=== PATIENT | female | born 1945 | race Caucasian/White ===

== ENCOUNTER 2020-05-28 16:33 | Observation (INO) | payer MEDICARE, OTHER ==
[~2020-05-28] VITALS: Ht 165.1 cm; Wt 77.1 kg
[2020-05-28] MEDS ORDERED: ASPIRIN CHEWABLE 81 MG TABLET. PO ONE (17:15)
--- NOTE | 2020-05-28 17:15 | EKG ---
[address] [address] Test Date: 2020-05-28 Test Time: 17:01:42 Pat Name: RAFAL GONZALES Department: Room: Gender: F Artistic Director: MACKENZIE : 1945 Requested By: YEHUDA KWON Order Number: [id number] Reading MD: Measurements Intervals [place] Rate: 49 P: 37 LA: 198 QRS: 35 QRSD: 100 T: 76 QT: 436 QTc: 396 Interpretive Statements SINUS BRADYCARDIA T ABNORMALITY IN HIGH LATERAL LEADS ABNORMAL ECG RI6.02 No previous ECG available for comparison
--- NOTE | 2020-05-28 17:16 | PHYS DOC ---
General Adult EDM: Chief Complaint: WEAKNESS/GENERALIZED HPI: HPI: 74-year-old female coming in for evaluation of high blood pressure readings this afternoon. Patient states she has been feeling weak recently and had decreased p.o. intake secondary to losing some teeth. 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 Patient has had other occasions where she has had high blood pressure during her PT sessions, she only takes half of her losartan on those days. Says she has had other previously high blood pressure reading in April, her systolic was greater than 200. Usual blood pressure readings are in the systolic 150s to 160s. Today at 3:21 PM the reading was 238/126, at 3:30 PM 158/84, at 3:46 PM it was 98/42. (YEHUDA KWON MD) Review of Systems: Review of Systems: All other systems within normal limits except for as noted in the HPI (YEHUDA KWON MD) Physical Exam: PE: Constitutional: Well developed, well nourished, no acute distress, non-toxic appearance. [] HENT: Normocephalic, atraumatic, bilateral external ears normal, nose normal. [] Eyes: PERRLA, conjunctiva normal, no discharge. [] Neck: No rigidity, supple, no stridor. [] Cardiovascular: Bradycardia, regular rhythm, brisk cap refill [] Lungs & Thorax: Non labored symmetric respirations, no tachypnea or respiratory distress [] Abdomen: Soft, nondistended. Skin: Warm, dry, no erythema, no rash. [] Back: Unremarkable Extremities: No deformities, no lower extremity edema [] Neurologic: Alert and oriented X 3, flacid right-sided hemiparalysis. [] Psychologic: Affect normal, judgement normal, mood normal. [] (YEHUDA KWON MD) Current Patient Data: Vital Signs: Vital Signs Date Time Temp Pulse Resp B/P (MAP) Pulse Ox O2 Delivery O2 Flow Rate FiO2 05/28/20 16:51 97.8 50 16 121/51 (74) 96 Room Air (YEHUDA KWON MD) EKG: EK: Sinus bradycardia heart rate of 40 bpm, trace ST elevation but less than 1 mm in inferior leads, no reciprocal depressions. T wave upright in V1 and inverted in aVL. No ectopy, normal intervals. 174: Repeat ECG unchanged, heart rate 48 bpm. [] (YEHUDA KWON MD) Radiology/Procedures: Radiology/Procedures: Exam: Chest one view INDICATION: Hypertension TECHNIQUE: Frontal view of the chest Comparisons: None FINDINGS: The cardiomediastinal silhouette and pulmonary vessels are within normal limits. The lung and pleural spaces are clear. IMPRESSION: No acute cardiopulmonary process. (YEHUDA KWON MD) Heart Score: Risk Factors: Risk Factors: DM, Current or recent (<one month) smoker, HTN, HLP, family history of CAD, obesity. Risk Scores: Score 0 - 3: 2.5% MACE over next 6 weeks - Discharge Home Score 4 - 6: 20.3% MACE over next 6 weeks - Admit for Clinical Observation Score 7 - 10: 72.7% MACE over next 6 weeks - Early Invasive Strategies (YEHUDA KWON MD) Course & Med Decision Making: Course & Med Decision Making Consulted is Dr. Arzola due to irregularities on EKG and no prior for comparison. He does not think it is STEMI and is recommending a repeat EKG in 30 minutes. EKG unchanged. Care transition to Dr. Kirkland pending labs (YEHUDA KWON MD) Course & Med Decision Making Patient is a 74-year-old female that presented to the emergency department with labile blood pressures and fatigue who was checked out to me from day team. Vital signs notable for sinus bradycardia and labile blood pressures. Patient with hypomagnesemia, hypokalemia and ROSEMARY. EKG x2 showed sinus bradycardia. Troponin within normal limits. Discussed findings with family and recommended admission for continued evaluation and treatment as well as medication management. Family grateful, verbalized understanding and agreed with plan of admission. (LEONIDAS KIRKLAND MD) Dragon Disclaimer: Dragon Disclaimer: This electronic medical record was generated, in whole or in part, using a voice recognition dictation system. (YEHUDA KWON MD) Departure Departure: Impression: Primary Impression: Hypomagnesemia Additional Impressions: Hypokalemia Elevated serum creatinine Sinus bradycardia Disposition: ADMITTED INPT THIS HOSP Admitting Physician: Lora Birmingham (LEONIDAS KIRKLAND MD) Referrals: CLAIR SPIVEY MD (PCP) YEHUDA KWON MD May 28, 2020 17:16 LEONIDAS KIRKLAND MD May 28, 2020 18:51
--- NOTE | 2020-05-28 17:20 | RAD ---
Exam: Chest one view INDICATION: Hypertension TECHNIQUE: Frontal view of the chest Comparisons: None FINDINGS: The cardiomediastinal silhouette and pulmonary vessels are within normal limits. The lung and pleural spaces are clear. IMPRESSION: No acute cardiopulmonary process. Electronically signed by: Chris Amanda MD (05/28/2020 5:18 PM) JATINDER
[2020-05-28 17:50] LABS: BASO % 0 % (0-3); EOS # 0.2 x10^3/uL (0.0-0.7); EOS % 2 % (0-3); HEMATOCRIT 38.5 % (36.0-47.0); HEMOGLOBIN 12.3 g/dL (12.0-15.5); LYMPH # 1.4 x10^3/uL (1.0-4.8); LYMPH % 15 % (24-48); MEAN CORPUSCULAR HEMOGLOBIN 28 pg (25-35); MEAN CORPUSCULAR HGB CONC 32 g/dL (31-37); MEAN CORPUSCULAR VOLUME 87 fL (79-100); MONO # 0.7 x10^3/uL (0.0-1.1); MONO % 8 % (0-9); NEUT # 6.7 x10^3uL (1.8-7.7); NEUT % 74 % (31-73); PLATELET COUNT 153 x10^3/uL (140-400); RED BLOOD COUNT 4.44 x10^6/uL (3.50-5.40); WHITE BLOOD COUNT 9.1 x10^3/uL (4.0-11.0)
[2020-05-28 18:05] LABS: CALCIUM 10.5 mg/dL (8.5-10.1); CREATININE 1.9 mg/dL (0.6-1.0); GFR 25.9; POTASSIUM 3.1 mmol/L (3.5-5.1)
--- NOTE | 2020-05-28 18:15 | EKG ---
[address] [address] Test Date: 2020-05-28 Test Time: 17:44:22 Pat Name: RAFAL GONZALES Department: Room: Gender: F Residence Supervisor: MACKENZIE : 1945 Requested By: YEHUDA KWON Order Number: [id number] Reading MD: Measurements Intervals [place] Rate: 48 P: 47 OK: 216 QRS: 36 QRSD: 102 T: 62 QT: 438 QTc: 395 Interpretive Statements SINUS BRADYCARDIA OTHERWISE NORMAL ECG RI6.02 No previous ECG available for comparison
[2020-05-28 18:16] LABS: ALBUMIN 3.2 g/dL (3.4-5.0); ALBUMIN/GLOBULIN RATIO 0.9 (1.0-1.7); MAGNESIUM 1.1 mg/dL (1.8-2.4); TOTAL BILIRUBIN 0.2 mg/dL (0.2-1.0); TOTAL PROTEIN 6.7 g/dL (6.4-8.2)
[2020-05-28] MEDS ORDERED: MAGNESIUM SULFATE 2GM 50 ML IV ONE (18:45)
[2020-05-28] MEDS ORDERED: POTASSIUM CHLORIDE 20 MEQ TABLET.ER. PO ONE (18:45)
[2020-05-28 20:05] VITALS: BP 118/68
--- NOTE | 2020-05-28 20:42 | HP ---
ADMIT DATE: 05/28/2020 HISTORY OF PRESENT ILLNESS: The patient is a 74-year-old female patient, who was brought to the Emergency Room as apparently she was having physical therapy and there she was noted to have extremely high blood pressure with a reading of 238/126 and other reading showed that the blood pressure was very labile and came down to 98/42. The patient stated that she was weak, but denied any other complaint. She stated that she had occasions where she has had high blood pressure during her PT sessions. She only takes half of her losartan on those days, but her blood pressure readings are usually between 150-160 systolic. She denied any chest pain, shortness of breath, orthopnea, paroxysmal nocturnal dyspnea. She was brought to the Emergency Room where she was evaluated and initially her EKG showed that she was in sinus bradycardia with heart rate at 40 beats per minute with trace ST segment elevation less than 1 mm in the inferior leads. No reciprocal depression and T-wave upright in V1, inverted in aVL. Apparently, the EKG was sent to Dr. Arzola and he did not feel that this is consistent with ST segment elevation. His repeat EKG showed the heart rate has unchanged much and was at 48 per minute. Her chest x-ray showed the cardiomediastinal silhouette and pulmonary vessels are within normal limits. Lungs and pleural spaces are clear. However, her lab work showed that she has hypernatremia, hypokalemia, impaired kidney function, hypercalcemia and severe hypomagnesemia with the magnesium of 1.1. Her troponin was 0.050. The patient was given 40 mEq of potassium chloride, 2 grams of magnesium and an aspirin was admitted for further evaluation and treatment. 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 PAST SURGICAL HISTORY: Significant for tonsillectomy, appendectomy, total abdominal hysterectomy and bilateral salpingo-oophorectomy. ALLERGIES: She is allergic to PENICILLIN AND METFORMIN. MEDICATIONS: She is currently on amlodipine 10 mg once a day, aspirin 81 mg once a day, calcium 1250 mg once a day, Colace 100 mg once a day, hydralazine 50 mg 3 times a day, Januvia 100 mg once a day, losartan 50 mg once a day, melatonin 10 mg at bedtime, metoprolol tartrate 25 mg once a day, potassium chloride 10 mEq, pravastatin 40 mg at bedtime, Zoloft 100 mg once a day, vitamin D2 50,000 units once a week, and zinc 220 mg once a day. FAMILY HISTORY: Noncontributory. SOCIAL HISTORY: She is , has adopted daughter. She has never smoked, does not drink alcohol or use any drugs. She used to be a physical therapist. REVIEW OF SYSTEMS: As per history of present illness. PHYSICAL EXAMINATION: GENERAL: Apparently when she arrived to the Emergency Room, she looked well and was clearly in no apparent respiratory distress. No pallor, jaundice or cyanosis. No lymphadenopathy, no thyromegaly. No jugular venous distension. No limb edema. VITAL SIGNS: Her heart rate was 50, blood pressure was 125/51, temperature 97.8, respiratory rate was 16, and oxygen saturation was 96%. HEAD, EYES, EARS, NOSE AND THROAT: Normocephalic, atraumatic. NECK: Supple. HEART: Showed normal first and second heart sounds. No gallop, rub or murmur. CHEST: Clear to auscultation. No crepitation or rhonchi. ABDOMEN: Distended, soft, nontender. NEUROLOGIC: She is awake, alert, responding appropriately. All her cranial nerves are intact. She has right-sided flaccid paralysis. She is able to move her left upper and lower extremities without difficulty, although she seemed to be mostly bedbound, chair bound. LABORATORY DATA: Her lab work showed that her white cell count was 9100, hemoglobin 12.3, hematocrit 38, MCV 87, and platelet count of 153,000 with normal manual differential. Her serum sodium was 146, potassium 3.1, chloride 105, bicarbonate 31, anion gap of 10, BUN 27, creatinine 1.9, estimated GFR was 26 mL per minute. Glucose 90, calcium was 10.5, magnesium was 1.1. Total bilirubin 0.2. AST, ALT, alkaline phosphatase were normal. Total protein was 6.7, albumin was 3.2. ASSESSMENT AND PLAN: In summary, this is a 74-year-old female patient who was admitted with labile hypertension, chronic kidney disease versus acute on chronic kidney disease, hypernatremia, hypokalemia, hypomagnesemia and hypercalcemia. My plan is to replenish her potassium and magnesium. I will continue probably her amlodipine and hydralazine, but I will hold her losartan as well as metoprolol. Continue all other medication. I will start her on D5 quarter saline with some potassium chloride. Start her also on magnesium oxide and potassium chloride orally. Repeat all her lab works tomorrow. We will also get physical and occupational therapy. MILDRED CATES MD DR: STEVE/crystal JOB#: [id number] / [id number]
[2020-05-28] MEDS: MAGNESIUM OXIDE 400 MG TABLET PO SCH (21:00)
[2020-05-28] MEDS: POTASSIUM CHLORIDE 20 MEQ TABLET.ER. PO SCH (22:34)
[2020-05-28] MEDS: POTASSIUM CL 20MEQ D5-0.2%NACL 1,000 ML IV SCH (22:35)
[2020-05-28 23:46] VITALS: BP 149/74
[2020-05-29] MEDS ORDERED: DOCU100C28 PO (00:54)
[2020-05-29] MEDS ORDERED: HYDR-2868 PO (00:54)
[2020-05-29] MEDS ORDERED: SITA100T PO (00:54)
[2020-05-29] MEDS ORDERED: POTA10TA5 PO (00:54)
[2020-05-29] MEDS ORDERED: PRAV40TA2 PO (00:54)
[2020-05-29] MEDS ORDERED: ERGO2000 PO (00:54)
[2020-05-29] MEDS ORDERED: MELA10CA PO (00:54)
[2020-05-29] MEDS ORDERED: ZINC220T3 PO (00:54)
[2020-05-29] MEDS ORDERED: ASPI-630 PO (00:54)
[2020-05-29] MEDS ORDERED: CALC500T54 PO (00:54)
[2020-05-29] MEDS ORDERED: AMLO-187 PO (00:54)
[2020-05-29] MEDS ORDERED: SERT100T PO (00:54)
--- NOTE | 2020-05-29 00:59 | NUR ---
The patient, RAFAL GONZALES, 74 y/o, F admitted by MILDRED CATES MD, was given written information regarding hospital policies, unit procedures and contact persons. Valuables were checked and vital signs noted. PT at rehab when bout of HTN noted. Rechecked there and it was lowering but with PT history of CVA 4 years ago, rehab wanted PT to go to the ER. PT admitted for electrolyte imbalances and ROSEMARY. Reviewed with PT her PMH, PSH, SH, FH and medications. MD restarted most medications, adjusted one. PT with CHANDRIKA and noncompliance with CPAP.
[2020-05-29] MEDS ORDERED: MELATONIN 3 MG TABLET PO PRN (01:15)
[2020-05-29 05:27] VITALS: BP 150/64
--- NOTE | 2020-05-29 08:13 | PDOC2 ---
CARDIAC CONSULT DATE OF CONSULT DOS: DATE: 05/29/20 TIME: 08:05 REASON FOR CONSULT Reason for Consult bradycardia REFERRING PHYSICIAN Referring Physician Dr. Knight SOURCE Source: Chart review, Patient HPI History of Present Illness This is a 74 yo female who presented secondary to elevated blood pressure. HR was noted in 40's overnight, which prompted this consult. Patient reports history of bradycardia since stroke 4 years ago. Was previously on BB therapy, but this was discontinued. Patient follows with [facility] cardiology, Dr. Sutherland. Reports having heart monitor about 6 months ago. No mention of PPM. She denies any dizziness, diaphoresis, or syncope. PAST MEDICAL HISTORY Cardiovascular: HTN Pulmonary: Other (CHANDRIKA) CENTRAL NERVOUS SYSTEM: CVA Psych: Depression Endocrine: Diabetes PAST SURGICAL HISTORY Past Surgical History: Appendectomy, Hysterectomy FAMILY HISTORY Family History: Cancer SOCIAL HISTORY Smoke: No ALCOHOL: none Drugs: None Lives: with Family CURRENT MEDICATIONS Current Medications Current Medications Aspirin (Aspirin Chewable) 324 mg 1X ONCE PO Last administered on 05/28/20at 17:20; Start 05/28/20 at 17:15; Stop 05/28/20 at 17:23; Status DC Magnesium Sulfate 50 ml @ 25 mls/hr 1X ONCE IV Last administered on 05/28/20at 19:01; Start 05/28/20 at 18:45; Stop 05/28/20 at 20:44; Status DC Potassium Chloride (Klor-Con) 40 meq 1X ONCE PO Last administered on 05/28/20at 19:01; Start 05/28/20 at 18:45; Stop 05/28/20 at 18:47; Status DC Potassium Chloride/Dextrose/ Sod Cl 1,000 ml @ 75 mls/hr [id number] IV Last administered on 05/28/20at 22:35; Start 05/28/20 at 21:00 Potassium Chloride (Klor-Con) 20 meq TID PO Last administered on 05/28/20at 22:34; Start 05/28/20 at 21:00 Magnesium Oxide (Magnesium Oxide) 400 mg TID PO Last administered on 05/28/20at 21:00; Start 05/28/20 at 21:00 Amlodipine Besylate (Norvasc) 10 mg DAILY PO ; Start 05/29/20 at 09:00 Aspirin (Aspirin Chewable) 81 mg DAILY PO ; Start 05/29/20 at 09:00 Docusate Sodium (Colace) 100 mg DAILY PO ; Start 05/29/20 at 09:00 Hydralazine HCl (Apresoline) 25 mg TID PO ; Start 05/29/20 at 09:00 Sertraline HCl (Zoloft) 100 mg DAILY PO ; Start 05/29/20 at 09:00 Calcium Carbonate/ Glycine (Oscal) 500 mg DAILY PO ; Start 05/29/20 at 09:00 Vitamin D (Vitamin D3) 2,000 unit DAILY PO ; Start 05/29/20 at 09:00 Melatonin (Melatonin) 3 mg PRN QHS PRN PO INSOMNIA; Start 05/29/20 at 01:15 Non-Formulary Medication (Potassium Chloride (Klor-Con 10)) 1 tab DAILY PO ; Start 05/29/20 at 09:00; Status UNV Atorvastatin Calcium (Lipitor) 10 mg QHS PO ; Start 05/29/20 at 21:00 Linagliptin (Tradjenta) 5 mg DAILY PO ; Start 05/29/20 at 09:00 Zinc Sulfate (Orazinc) 220 mg DAILY PO ; Start 05/29/20 at 09:00 Active Scripts Active Reported Zinc Sulfate 220 Mg Tablet 1 Tab PO DAILY 30 Days Vitamin D2 (Ergocalciferol (Vitamin D2)) 50 Mcg Tablet 50 Mcg PO DAILY Zoloft (Sertraline Hcl) 100 Mg Tablet 1 Tab PO DAILY Pravastatin Sodium 40 Mg Tablet 1 Tab PO QHS Klor-Con 10 (Potassium Chloride) 10 Meq Tablet.er 1 Tab PO DAILY 30 Days Melatonin 10 Mg Capsule 1 Cap PO QHS 30 Days Januvia (Sitagliptin Phosphate) 100 Mg Tablet 1 Tab PO DAILY Hydralazine Hcl 25 Mg Tablet 1 Tab PO TID Docusate Sodium 100 Mg Capsule 1 Cap PO DAILY 30 Days Calcium (Calcium Carbonate) 500 Mg Tab.chew 500 Mg PO DAILY Aspirin 81 Mg Tab.chew 81 Mg PO DAILY Amlodipine Besylate 10 Mg Tablet 1 Tab PO DAILY ALLERGIES Allergies: Coded Allergies: Penicillins (Verified Allergy, Unknown, 05/28/20) metformin (Verified Allergy, Unknown, 05/28/20) ROS Review of Systems 14 point ROS conducted with pertinent positives noted above in HPI PHYSICAL EXAM General: Alert, Oriented X3, Cooperative, No acute distress HEENT: Atraumatic Lungs: Clear to auscultation Heart: Regular rate Abdomen: Soft, No tenderness Extremities: No edema, Normal pulses Skin: No breakdown Neuro: Normal speech, Sensation intact Psych/Mental Status: Mental status NL, Mood NL MUSCULOSKELETAL: Osteoarthritic changes both hands VITALS Vital Signs Vital Signs Date Time Temp Pulse Resp B/P (MAP) Pulse Ox O2 Delivery O2 Flow Rate FiO2 05/29/20 05:27 97.9 51 20 150/64 (92) 95 Room Air LABS LABS Laboratory Tests Test 05/28/20 17:14 05/28/20 20:43 05/29/20 07:40 White Blood Count 9.1 x10^3/uL (4.0-11.0) Red Blood Count 4.44 x10^6/uL (3.50-5.40) Hemoglobin 12.3 g/dL (12.0-15.5) Hematocrit 38.5 % (36.0-47.0) Mean Corpuscular Volume 87 fL (79-100) Mean Corpuscular Hemoglobin 28 pg (25-35) Mean Corpuscular Hemoglobin Concent 32 g/dL (31-37) Red Cell Distribution Width 14.0 % (11.5-14.5) Platelet Count 153 x10^3/uL (140-400) Neutrophils (%) (Auto) 74 % (31-73) Lymphocytes (%) (Auto) 15 % (24-48) Monocytes (%) (Auto) 8 % (0-9) Eosinophils (%) (Auto) 2 % (0-3) Basophils (%) (Auto) 0 % (0-3) Neutrophils # (Auto) 6.7 x10^3uL (1.8-7.7) Lymphocytes # (Auto) 1.4 x10^3/uL (1.0-4.8) Monocytes # (Auto) 0.7 x10^3/uL (0.0-1.1) Eosinophils # (Auto) 0.2 x10^3/uL (0.0-0.7) Basophils # (Auto) 0.0 x10^3/uL (0.0-0.2) Sodium Level 146 mmol/L (136-145) Potassium Level 3.1 mmol/L (3.5-5.1) Chloride Level 105 mmol/L (98-107) Carbon Dioxide Level 31 mmol/L (21-32) Anion Gap 10 (6-14) Blood Urea Nitrogen 27 mg/dL (7-20) Creatinine 1.9 mg/dL (0.6-1.0) Estimated GFR (Cockcroft-Gault) 25.9 BUN/Creatinine Ratio 14 (6-20) Glucose Level 90 mg/dL (70-99) Calcium Level 10.5 mg/dL (8.5-10.1) Magnesium Level 1.1 mg/dL (1.8-2.4) Total Bilirubin 0.2 mg/dL (0.2-1.0) Aspartate Amino Transf (AST/SGOT) 26 U/L (15-37) Alanine Aminotransferase (ALT/SGPT) 20 U/L (14-59) Alkaline Phosphatase 62 U/L (46-116) Troponin I Quantitative 0.050 ng/mL (0-0.055) AH-Mte-R-Type Natriuretic Peptide 931 pg/mL (0-124) Total Protein 6.7 g/dL (6.4-8.2) Albumin 3.2 g/dL (3.4-5.0) Albumin/Globulin Ratio 0.9 (1.0-1.7) Glucose (Fingerstick) 71 mg/dL (70-99) 70 mg/dL (70-99) ASSESSMENT/PLAN Assessment/Plan 1. Hypertension with labile blood pressures; now controlled 2. Weakness 3. Hypokalemia, hypomagnesemia; replaced 4. Bradycardia, sinus; lowest 38 overnight. No pauses. HR presently 80. Reports h/o bradycardia. BB discontinued in past. Follows with [facility] cardiology, Dr. Sutherland. Had event monitor approximately 6 months ago; PPM has never been discussed/recommended. Denies any dizziness or syncopal episodes 5. Hyperlipidemia; statin 6. Diabetes, II 7. H/o CVA 8. CHANDRIKA Recommendations Continue current antiHTN therapy Secondary prevention measures ASA/statin therapy Avoid AV lewis blocking agents Monitor tele Consider outpatient ischemic evaluation if none recently Follow up with [facility] cardiology upon discharge JAGRUTI ARVIZU APRN May 29, 2020 08:13
[2020-05-29] MEDS: CHOLECALCIFEROL (VITAMIN D3) 1,000 UNIT TABLET PO SCH (08:42)
[2020-05-29] MEDS: POTASSIUM CHLORIDE 20 MEQ TABLET.ER. PO SCH ×3 (08:42→21:14)
[2020-05-29] MEDS: SERTRALINE 100 MG TABLET. PO SCH (08:43)
[2020-05-29] MEDS: ASPIRIN CHEWABLE 81 MG TABLET. PO SCH (08:43)
[2020-05-29] MEDS: CALCIUM CARBONATE 500 MG TABLET PO SCH (08:43)
[2020-05-29] MEDS: LINAGLIPTIN 5 MG TABLET PO SCH (08:43)
[2020-05-29] MEDS: DOCUSATE SODIUM 100 MG CAPSULE PO SCH (08:43)
[2020-05-29] MEDS: ZINC SULFATE 220 MG CAPSULE. PO SCH (08:43)
[2020-05-29] MEDS: MAGNESIUM OXIDE 400 MG TABLET PO SCH ×3 (08:44→21:00)
[2020-05-29] MEDS: amLODIPine BESYLATE 10 MG TABLET PO SCH (08:54)
[2020-05-29] MEDS: hydrALAZINE 25 MG TABLET PO SCH ×3 (08:55→21:14)
[2020-05-29] MEDS ORDERED: POTASSIUM CHLORIDE PO SCH (09:00)
[2020-05-29 09:24] LABS: ALBUMIN 3.1 g/dL (3.4-5.0); ALBUMIN/GLOBULIN RATIO 0.9 (1.0-1.7); CALCIUM 9.9 mg/dL (8.5-10.1); CREATININE 1.4 mg/dL (0.6-1.0); GFR 36.9; MAGNESIUM 1.6 mg/dL (1.8-2.4); POTASSIUM 3.7 mmol/L (3.5-5.1); TOTAL BILIRUBIN 0.2 mg/dL (0.2-1.0); TOTAL PROTEIN 6.7 g/dL (6.4-8.2)
[2020-05-29] MEDS: POTASSIUM CL 20MEQ D5-0.2%NACL 1,000 ML IV SCH ×2 (10:20→23:40)
[2020-05-29 11:24] VITALS: BP 153/74
--- NOTE | 2020-05-29 11:52 | PN ---
DATE: 05/29/2020 ATTENDING PHYSICIAN: Dr. Birmingham. SUBJECTIVE: The patient is alert, but she remains quite weak. She is hemiparetic with right sided weakness. She gets around with assistance from her . She was undergoing physical therapy. She was admitted with blood pressure issues, very labile along with electrolyte issues. OBJECTIVE FINDINGS: VITAL SIGNS: Today, her blood pressure is 150/64, pulse remains low at 46. It is a sinus bradycardia. She is afebrile. Oxygen saturation 95% on room air. HEENT: Head is without trauma. Pupils are reactive. Sclerae are nonicteric. Oropharynx clear. NECK: Supple, no bruits or stridor. LUNGS: Clear. CARDIOVASCULAR: Showed a bradycardic rhythm. No obvious gallops. Peripheral pulses are palpable and weak. ABDOMEN: Obese, protuberant. No organomegaly. Bowel sounds are hypoactive. EXTREMITIES: Show trace edema. NEUROLOGIC: Right-sided hemiparesis. LABORATORY DATA: Hemoglobin yesterday was 12.3 g. Sodium 146 mEq. On admission, potassium 3.1, creatinine is 1.9 mg/dL. Repeat chemistry this morning with hydration and electrolyte supplementation is still pending due to a difficult stick. Troponin was 0.05. ASSESSMENT: 1. A 74-year-old female with labile hypertension. 2. Old stroke with right-sided hemiparesis. 3. Hypokalemia. 4. Concomitant hypomagnesemia. 5. Hypernatremia. 6. Chronic kidney disease stage 4. 7. Generalized debilitation. 8. Asymptomatic bradycardia. PLAN: 1. Blood pressure control. 2. Beta blockade has been held. 3. Electrolyte replacement. 4. Continue monitoring her bradycardia. 5. Formal Cardiology consultation in anticipation. If her heart rate does not come up, she may be a candidate for permanent pacemaker. 6. Follow up serial chemistries. IVA HOBSON MD DR: ARNIE/crystal JOB#: [id number] / [id number]
[2020-05-29 15:22] VITALS: BP 137/75
[2020-05-29 19:30] VITALS: BP 155/73
[2020-05-29] MEDS ORDERED: ATORVASTATIN CALCIUM 10 MG TABLET. PO SCH (21:00)
[2020-05-29 23:30] VITALS: BP 156/84
[2020-05-30 06:00] VITALS: BP 137/68
--- NOTE | 2020-05-30 07:49 | PDOC ---
CARDIO Progress Notes Date & Time Date of Service DATE: 05/30/20 TIME: 07:46 Time of Evaluation 07:46 Subjective Notes Feeling better, no complaints Vitals Vitals Vital Signs Date Time Temp Pulse Resp B/P (MAP) Pulse Ox O2 Delivery O2 Flow Rate FiO2 05/30/20 06:00 98.1 51 19 137/68 (91) 94 05/29/20 23:30 Room Air Weight Weight [ ] Input and Output I.O. Intake and Output 05/30/20 07:00 Intake Total 290 ml Balance 290 ml Intake Oral 290 ml # Voids 5 Laboratory Labs Laboratory Tests Test 05/28/20 17:14 05/28/20 20:43 05/29/20 07:40 05/29/20 08:47 White Blood Count 9.1 x10^3/uL (4.0-11.0) Red Blood Count 4.44 x10^6/uL (3.50-5.40) Hemoglobin 12.3 g/dL (12.0-15.5) Hematocrit 38.5 % (36.0-47.0) Mean Corpuscular Volume 87 fL (79-100) Mean Corpuscular Hemoglobin 28 pg (25-35) Mean Corpuscular Hemoglobin Concent 32 g/dL (31-37) Red Cell Distribution Width 14.0 % (11.5-14.5) Platelet Count 153 x10^3/uL (140-400) Neutrophils (%) (Auto) 74 % (31-73) Lymphocytes (%) (Auto) 15 % (24-48) Monocytes (%) (Auto) 8 % (0-9) Eosinophils (%) (Auto) 2 % (0-3) Basophils (%) (Auto) 0 % (0-3) Neutrophils # (Auto) 6.7 x10^3uL (1.8-7.7) Lymphocytes # (Auto) 1.4 x10^3/uL (1.0-4.8) Monocytes # (Auto) 0.7 x10^3/uL (0.0-1.1) Eosinophils # (Auto) 0.2 x10^3/uL (0.0-0.7) Basophils # (Auto) 0.0 x10^3/uL (0.0-0.2) Sodium Level 146 mmol/L (136-145) 145 mmol/L (136-145) Potassium Level 3.1 mmol/L (3.5-5.1) 3.7 mmol/L (3.5-5.1) Chloride Level 105 mmol/L (98-107) 105 mmol/L (98-107) Carbon Dioxide Level 31 mmol/L (21-32) 29 mmol/L (21-32) Anion Gap 10 (6-14) 11 (6-14) Blood Urea Nitrogen 27 mg/dL (7-20) 21 mg/dL (7-20) Creatinine 1.9 mg/dL (0.6-1.0) 1.4 mg/dL (0.6-1.0) Estimated GFR (Cockcroft-Gault) 25.9 36.9 BUN/Creatinine Ratio 14 (6-20) 15 (6-20) Glucose Level 90 mg/dL (70-99) 89 mg/dL (70-99) Calcium Level 10.5 mg/dL (8.5-10.1) 9.9 mg/dL (8.5-10.1) Magnesium Level 1.1 mg/dL (1.8-2.4) 1.6 mg/dL (1.8-2.4) Total Bilirubin 0.2 mg/dL (0.2-1.0) 0.2 mg/dL (0.2-1.0) Aspartate Amino Transf (AST/SGOT) 26 U/L (15-37) 27 U/L (15-37) Alanine Aminotransferase (ALT/SGPT) 20 U/L (14-59) 19 U/L (14-59) Alkaline Phosphatase 62 U/L (46-116) 68 U/L (46-116) Troponin I Quantitative 0.050 ng/mL (0-0.055) DN-Lgl-A-Type Natriuretic Peptide 931 pg/mL (0-124) Total Protein 6.7 g/dL (6.4-8.2) 6.7 g/dL (6.4-8.2) Albumin 3.2 g/dL (3.4-5.0) 3.1 g/dL (3.4-5.0) Albumin/Globulin Ratio 0.9 (1.0-1.7) 0.9 (1.0-1.7) Glucose (Fingerstick) 71 mg/dL (70-99) 70 mg/dL (70-99) Test 05/29/20 11:34 05/29/20 16:36 05/29/20 22:21 05/30/20 07:30 Glucose (Fingerstick) 130 mg/dL (70-99) 104 mg/dL (70-99) 110 mg/dL (70-99) 74 mg/dL (70-99) Physical Exams HEENT: Neck Supple W Full Motion Chest: Symmetric Lungs: Clear to Auscultation Heart: RRR Abdomen: Soft N/T Extremities: No Edema Neurology: alert, oriented, follow commands Assessment Assessment 1. Hypertension with labile blood pressures; now controlled 2. Weakness 3. Hypokalemia, hypomagnesemia; replaced 4. Bradycardia, sinus; lowest 44 overnight. No pauses. HR presently 75. H/o bradycardia. BB discontinued in past. Follows with [facility] cardiology, Dr. Sutherland. Event monitor approximately 6 months ago; PPM has never been discuss ed/recommended. Denies any dizziness or syncopal episodes 5. Hyperlipidemia; statin 6. Diabetes, II 7. H/o CVA 8. CHANDRIKA Recommendations PT/OT Continue current antiHTN therapy Secondary prevention measures ASA/statin therapy Avoid AV lewis blocking agents Consider outpatient ischemic evaluation if none recently Follow up with [facility] cardiology upon discharge JAGRUTI ARVIZU APRN May 30, 2020 07:49
[2020-05-30] MEDS: DOCUSATE SODIUM 100 MG CAPSULE PO SCH (08:21)
[2020-05-30] MEDS: POTASSIUM CHLORIDE 20 MEQ TABLET.ER. PO SCH (08:21)
[2020-05-30] MEDS: ZINC SULFATE 220 MG CAPSULE. PO SCH (08:21)
[2020-05-30] MEDS: CHOLECALCIFEROL (VITAMIN D3) 1,000 UNIT TABLET PO SCH (08:21)
[2020-05-30] MEDS: CALCIUM CARBONATE 500 MG TABLET PO SCH (08:22)
[2020-05-30] MEDS: hydrALAZINE 25 MG TABLET PO SCH (08:22)
[2020-05-30] MEDS: MAGNESIUM OXIDE 400 MG TABLET PO SCH (08:22)
[2020-05-30] MEDS: ASPIRIN CHEWABLE 81 MG TABLET. PO SCH (08:22)
[2020-05-30] MEDS: LINAGLIPTIN 5 MG TABLET PO SCH (08:22)
[2020-05-30] MEDS: SERTRALINE 100 MG TABLET. PO SCH (08:22)
[2020-05-30] MEDS: amLODIPine BESYLATE 10 MG TABLET PO SCH (08:22)
--- NOTE | 2020-05-30 09:16 | DS ---
DATE OF DISCHARGE: 05/30/2020 ATTENDING PHYSICIAN: Dr. Birmingham. FINAL DISCHARGE DIAGNOSES: 1. A 74-year-old female with hypokalemia. 2. Concomitant hypomagnesemia. 3. Labile hypertension. 4. 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 5. Chronic kidney disease, stage 4. 6. Hypernatremia, corrected. 7. Generalized debilitation. 8. Asymptomatic bradycardia, resolved. HISTORY AND PHYSICAL: This is a 74-year-old female admitted with weakness, labile hypertension and symptomatic hypokalemia. She had been undergoing physical therapy when she was sent to the hospital. PHYSICAL EXAMINATION: Please see the dictated note. PERTINENT LABORATORY AND X-RAY STUDIES: On admission, her potassium was decreased to 3.1 mEq, repeat was up to 3.7 mEq, sodium 145 mEq, and creatinine had come from 1.9 down to 1.4 mg/dL. Cardiac enzymes are negative. BNP was 931. Chest x-ray on admission showed no decompensation or infiltrates. COURSE IN THE HOSPITAL: The patient was admitted. She had some bradycardia monitored. This eventually resolved. We did have a Cardiology consultation. She has had previous event monitor was placed through Dr. Hardin at [facility]. They recommended avoiding beta blockers and medications that were blocking impulse through the AV node. Prior to discharge, she was in a sinus rhythm with a rate between 60 and 70 per minute. She was feeling better. Potassium and magnesium were replaced. Subsequent daily chemistries were drawn and her potassium was 3.7 mEq. On the fourth hospital day, she was doing better. She wanted to go home. I felt it was reasonable. Her is the primary mica splitter and he will come pick her up. Her discharge meds are as follows: She will continue her amlodipine 10 mg daily, aspirin 81 mg daily, calcium docusate daily, vitamin D2, melatonin 10 mg at bedtime, potassium supplementation 10 mEq daily, pravastatin 40 mg daily, Zoloft 100 mg daily, Januvia 100 mg daily. For now, we held her hydralazine. The patient was instructed to follow up with Dr. Cid at the regular scheduled time for recheck blood pressure and chemistries. She was discharged from our hospital in stable condition with explicit instructions and followup care. Total discharge time was 39 minutes. IVA HOBSON MD DR: ARNIE/crystal JOB#: [id number] / [id number] CLAIR Sanders MD
[2020-05-30 10:15] VITALS: BP 153/70
--- NOTE | 2020-05-30 13:12 | NUR ---
NURSING NOTE DISCHARGE PT DISCHARGED HOME VIA WHEELCHAIR ACCOMPANIED BY . PT GIVEN WRITTEN AND VERBAL DISCHARGE INSTRUCTIONS. PT EDUCATED ABOUT FOLLOW UP WITH PCP. SIRIA MURCIA.
== END 2020-05-30 13:13 | disposition home health service (06) ==
LOC: ER 16:33 → 1 SOUTH 18:40 → INTOOBSV 18:40
PROVIDERS: ADMIT Internal Medicine; ATTEND Internal Medicine
DX: E87.6 Hypokalemia (principal); E83.42 Hypomagnesemia; I12.9 Hypertensive chronic kidney disease with stage 1 through stage 4 chronic kidney disease, or unspecified chronic kidney disease; N18.4 Chronic kidney disease, stage 4 (severe); N17.9 Acute kidney failure, unspecified; E11.22 Type 2 diabetes mellitus with diabetic chronic kidney disease; E83.52 Hypercalcemia; E78.5 Hyperlipidemia, unspecified; E87.0 Hyperosmolality and hypernatremia; G47.33 Obstructive sleep apnea (adult) (pediatric); I69.351 Hemiplegia and hemiparesis following cerebral infarction affecting right dominant side; R00.1 Bradycardia, unspecified; R79.89 Other specified abnormal findings of blood chemistry; R53.81 Other malaise; Z79.82 Long term (current) use of aspirin; Z79.84 Long term (current) use of oral hypoglycemic drugs; Z79.899 Other long term (current) drug therapy; Z87.891 Personal history of nicotine dependence; Z90.710 Acquired absence of both cervix and uterus; Z90.49 Acquired absence of other specified parts of digestive tract
CPT/HCPCS: 36415; 71045; 80053; 82947; 83735; 83880; 84484; 85025; 93005; 96365; 96366; 96367; 97116; 97162; 97166; 97530; 99285; G0378; J3475; G0379

== ENCOUNTER 2020-07-12 17:41 | Inpatient (IN) | payer MEDICARE, OTHER ==
[~2020-07-12] VITALS: Ht 167.6 cm; Wt 74.0 kg
[~2020-07-12 17:41] MED LIST: AMLO-187 PO; ASPI-630 PO; CALC500T54 PO; DOCU100C28 PO; ERGO2000 PO; HYDR-2868 PO; MELA10CA PO; POTA10TA5 PO; PRAV40TA2 PO; SERT100T PO; SITA100T PO; ZINC220T3 PO
[2020-07-12] MEDS ORDERED: ONDANSETRON PF 4 MG/2 ML VIAL. IVP ONE (18:00)
--- NOTE | 2020-07-12 18:02 | EKG ---
[address] [address] Test Date: 2020-07-12 Test Time: 17:53:02 Pat Name: RAFAL GONZALES Department: Room: Gender: F Custodial Laborer: MARCELLO : 1945 Requested By: RADHA THAKKAR Order Number: [id number] Reading MD: Measurements Intervals [place] Rate: 67 P: 39 DE: 178 QRS: 26 QRSD: 92 T: 72 QT: 402 QTc: 428 Interpretive Statements SINUS RHYTHM T ABNORMALITY IN HIGH LATERAL LEADS ABNORMAL ECG RI6.02 No previous ECG available for comparison
[2020-07-12] MEDS ORDERED: ONDANSETRON PF 4 MG/2 ML VIAL. ONE (18:03)
--- NOTE | 2020-07-12 18:11 | PHYS DOC ---
Past History Past Medical History: Diabetes, Hypertension, Stroke (RADHA CORTÉS APRN) Past Surgical History: Appendectomy, Hysterectomy, Tonsillectomy (RADHA CORTÉS APRN) Alcohol Use: None (RADHA CORTÉS APRN) General Adult EDM: Chief Complaint: NAUSEA/VOMITING/DIARRHEA HPI: HPI: Patient is a 74-year-old female presents with weakness, nausea/vomiting, fatigue, cough that started today. Patient denies fevers. Patient denies any recent illness. Patient denies taking thing at home for discomfort. Patient has history of diabetes, hypertension, CVA. (RADHA CORTÉS APRN) Review of Systems: Review of Systems: Constitutional: Denies fever or chills Eyes: Denies change in visual acuity HENT: Denies nasal congestion or sore throat Respiratory: Reports cough denies shortness of breath Cardiovascular: Denies chest pain or edema GI: Denies abdominal pain, nausea, vomiting, bloody stools or diarrhea : Denies dysuria Musculoskeletal: Denies back pain or joint pain Integument: Denies rash Neurologic: Denies headache, focal weakness or sensory changes Endocrine: Denies polyuria or polydipsia Lymphatic: Denies swollen glands Psychiatric: Denies depression or anxiety (RADHA CORTÉS APRN) Current Medications: Current Meds: Current Medications Medications (Trade) Dose Ordered Sig/Ben Start Time Stop Time Status Last Admin Dose Admin Ondansetron HCl (Zofran) 4 mg STK-MED ONCE 07/12/20 18:03 07/12/20 18:04 DC (RADHA CORTÉS APRN) Allergies: Allergies: Allergies Coded Allergies Type Severity Reaction Last Updated Verified Penicillins Allergy Unknown 07/12/20 Yes metformin Allergy Unknown 07/12/20 Yes (RADHA CORTÉS APRN) Physical Exam: PE: Constitutional: Well developed, well nourished, no acute distress, non-toxic appearance. [] HENT: Normocephalic, atraumatic, bilateral external ears normal, oropharynx moist, no oral exudates, nose normal. [] Eyes: PERRLA, EOMI, conjunctiva normal, no discharge. [] Neck: Normal range of motion, no tenderness, supple, no stridor. [] Cardiovascular:Heart rate regular rhythm, no murmur [] Lungs & Thorax: Bilateral breath sounds clear to auscultation [] Abdomen: Bowel sounds normal, soft, no tenderness, no masses, no pulsatile masses. [] Skin: Warm, dry, no erythema, no rash. [] Back: No tenderness, no CVA tenderness. [] Extremities: No tenderness, no cyanosis, no clubbing, ROM intact, no edema. [] Neurologic: Alert and oriented X 3, normal motor function, normal sensory function, no focal deficits noted. [] Psychologic: Affect normal, judgement normal, mood normal. [] (RADHA CORTÉS APRN) Current Patient Data: Vital Signs: Vital Signs Date Time Temp Pulse Resp B/P (MAP) Pulse Ox O2 Delivery O2 Flow Rate FiO2 07/12/20 17:49 97.6 72 18 139/72 (94) 94 Room Air (RADHA CORTÉS APRN) EKG: EKG: [] (RADHA CORTÉS APRN) Radiology/Procedures: Radiology/Procedures: []EXAM: CHEST 1 VIEW History: Cough COMPARISON: 05/28/2020 TECHNIQUE: Single portable radiograph of the chest FINDINGS: The cardiac silhouette is unremarkable. The lungs are clear bilaterally. The costophrenic sulci are clear and well demarcated. . IMPRESSION: No radiographic evidence of an acute cardiopulmonary process. Electronically signed by: Luke Jose MD (07/12/2020 6:10 PM) [id number] (RADHA CORTÉS APRN) Heart Score: C/O Chest Pain: No Risk Factors: Risk Factors: DM, Current or recent (<one month) smoker, HTN, HLP, family history of CAD, obesity. Risk Scores: Score 0 - 3: 2.5% MACE over next 6 weeks - Discharge Home Score 4 - 6: 20.3% MACE over next 6 weeks - Admit for Clinical Observation Score 7 - 10: 72.7% MACE over next 6 weeks - Early Invasive Strategies (RADHA CORTÉS APRN) C/O Chest Pain: No (LEONIDAS KIRKLAND MD) Course & Med Decision Making: Course & Med Decision Making Pertinent Labs and Imaging studies reviewed. (See chart for details) [] Patient's denying shortness of breath but oxygen saturations low 90s. Patient denies fevers. Patient just recently got the Covid vaccine. Patient is reporting a cough, weakness, fatigue, vomiting. Zofran ordered for nausea. This x-ray is negative for acute abnormalities. D-dimer was elevated 0.78. CTA ordered to rule out PE. Creatinine is 1.6, lactic 2.6. NS bolus ordered to treat dehydration from vomiting. Transfer of patient care to Dr. Kirkland. (RADHA CORTÉS APRN) Course & Med Decision Making Patient care handed off to me at checkout by [employer] Elif Cortés. Patient with white count, tachycardia, hypoxia on room air, slightly elevated lactate and pneumonia on CT. Placed on nasal cannula, given broad-spectrum antibiotics, and swab for Covid. Discussed findings with patient and recommended admission for continued evaluation and treatment of her pneumonia. Patient grateful, verbalized understanding and agreed with plan of admission. (LEONIDAS KIKRLAND MD) Dragon Disclaimer: Dragon Disclaimer: This electronic medical record was generated, in whole or in part, using a voice recognition dictation system. (RADHA CORTÉS APRN) Departure Departure: Impression: Primary Impression: Pneumonia Additional Impression: Hypoxic Disposition: ADMITTED INPATIENT Admitting Physician: Franklin Knight (LEONIDAS KIRKLAND MD) Condition: IMPROVED Referrals: HAO RAYMOND MD (PCP) RADHA CORTÉS APRN Jul 12, 2020 18:11 LEONIDAS KIRKLAND MD Jul 12, 2020 20:50
[2020-07-12 18:47] LABS: BASO # 0.1 x10^3/uL (0.0-0.2); BASO % 0 % (0-3); EOS # 0.1 x10^3/uL (0.0-0.7); EOS % 1 % (0-3); HEMATOCRIT 41.8 % (36.0-47.0); HEMOGLOBIN 13.7 g/dL (12.0-15.5); LYMPH # 1.2 x10^3/uL (1.0-4.8); LYMPH % 10 % (24-48); MEAN CORPUSCULAR HEMOGLOBIN 29 pg (25-35); MEAN CORPUSCULAR HGB CONC 33 g/dL (31-37); MEAN CORPUSCULAR VOLUME 88 fL (79-100); MONO # 0.6 x10^3/uL (0.0-1.1); MONO % 5 % (0-9); NEUT # 10.2 x10^3uL (1.8-7.7); NEUT % 84 % (31-73); PLATELET COUNT 164 x10^3/uL (140-400); RED BLOOD COUNT 4.77 x10^6/uL (3.50-5.40); RED CELL DISTRIBUTION WIDTH 14.5 % (11.5-14.5); WHITE BLOOD COUNT 12.1 x10^3/uL (4.0-11.0)
[2020-07-12 19:04] LABS: CALCIUM 10.5 mg/dL (8.5-10.1); CREATININE 1.6 mg/dL (0.6-1.0); GFR 31.6; POTASSIUM 3.5 mmol/L (3.5-5.1)
[2020-07-12 19:09] LABS: ALBUMIN 3.4 g/dL (3.4-5.0); ALBUMIN/GLOBULIN RATIO 0.9 (1.0-1.7); TOTAL BILIRUBIN 0.4 mg/dL (0.2-1.0); TOTAL PROTEIN 7.4 g/dL (6.4-8.2)
[2020-07-12] MEDS ORDERED: IV NORMAL SALINE 1,000ML 1,000 ML IV ONE (19:15)
[2020-07-12] MEDS ORDERED: IOHEXOL 350 MG/ML 100 ML VIAL. IV ONE (20:00)
[2020-07-12 20:11] LABS: BACTERIA,URINE 0 /HPF (0-FEW); BILIRUBIN,URINE NEG (NEG); CLARITY,URINE CLEAR; COLOR,URINE YELLOW; GLUCOSE,URINE NEG (NEG); NITRITE,URINE NEG (NEG); SQUAMOUS EPITHELIAL CELL,UR MOD /LPF; UROBILINOGEN,URINE 0.2 mg/dL (0.2 mg/dL)
--- NOTE | 2020-07-12 20:44 | RAD ---
Examination: CT angiography chest with IV contrast HISTORY: History of cough COMPARISON: None available TECHNIQUE: Axial CT angiographic images of chest were performed without contrast. Coronal and sagitta l reformats are performed Exposure: One or more of the following individualized dose reduction techniques were utilized for thi s examination: 1. Automated exposure control 2. Adjustment of the mA and/or kV according to patient size 3. Use of iterative reconstruction technique FINDINGS: The visualized thyroid gland grossly appears unremarkable. Central airways are patent. Coronary arter y calcifications. The heart size grossly appears unremarkable. The ascending aorta measures 3.8 cm in transverse dimension. There is no evidence of filling defect identified in the main pulmonary arteri al trunk and right and left main pulmonary arteries and the visualized lobar, segmental branches of t he pulmonary arteries. Moderate patchy airspace opacities identified in the right middle lobe, and bibasilar lung airspace o pacities likely multifocal pneumonia or atypical or viral pneumonia. The liver, spleen, adrenals phil sly appears unremarkable. 4 mm calculus in the left kidney. Mild degenerative changes thoracic spine. IMPRESSION: 1. No evidence of pulmonary embolism. 2. Moderate patchy airspace opacities identified in the right middle lobe, and bibasilar lung airspa ce opacities likely multifocal pneumonia or atypical or viral pneumonia. Follow-up to resolution. 3. Coronary artery calcifications. 4. 4 mm calculus left kidney. Electronically signed by: Luke Jose MD (07/12/2020 8:41 PM) [id number]
[2020-07-12] MEDS ORDERED: ENOXAPARIN 40 MG/0.4 ML SYRINGE. SQ ONE (21:00)
[2020-07-12] MEDS ORDERED: DEXAMETHASONE 4 MG TABLET PO ONE (21:00)
[2020-07-12 23:30] VITALS: BP 159/89
[2020-07-13] VITALS (7 sets, daily range): BP systolic 103–183; BP diastolic 65–88
--- NOTE | 2020-07-13 00:01 | NUR ---
Pt admitted to ICU bed 6 with Pneumonia, COVID PUI. Pt presents A&O to person and place. Pt is post CVA and has right sided weakness and some expressive aphasia. IV Left AC S.L. A full complete assessment obtained, and history obtained from previous admission. provided medication list. Pt oriented to unit, nurse, call light, and plan of care. V/U stated. Pt remains in Droplet and contact precautions at this time. Will monitor.
[2020-07-13] MEDS ORDERED: LOSA50TA86 PO (05:52)
[2020-07-13] MEDS ORDERED: MAGN250T10 PO (05:52)
--- NOTE | 2020-07-13 11:36 | HP ---
ADMIT DATE: 07/12/2020 ATTENDING PHYSICIAN: Dr. Hobson CHIEF COMPLAINT: Nausea, cough and shortness of breath. HISTORY OF PRESENT ILLNESS: The patient is a 74-year-old female admitted through the ED with a 1-day history of nausea, vomiting, fatigue, cough and congestion and extensive workup in the ED earlier last night showed evidence of diffuse patchy infiltrates, not seen on the chest x-ray, but rather on the CT scan. They were looking for pulmonary embolus. Blood clots were ruled out. However, she has diffuse patchy atypical pneumonia. She has had her COVID shot already this year. The coronavirus swab is pending along with influenza. She was admitted then with atypical pneumonia that was quite symptomatic. PAST MEDICAL HISTORY: Significant for fairly extensive stroke 4 years ago, leaving her very dependent on her . Her at age 81 has been caring for her at home. She is nonambulatory and is incontinent of bowel and urine. He has been doing a fairly good job. The only daughter in [facility] states that they are considering going to a higher level of care, but they have not address that issue so far. She also has a history of diabetes, essential hypertension and generalized debilitation. PAST SURGICAL HISTORY: Includes appendectomy, hysterectomy and tonsillectomy. ALLERGIES: PENICILLIN AND METFORMIN, exact reactions unclear. CURRENT MEDICATIONS: From home reviewed. She was taking amlodipine, aspirin, calcium, docusate, vitamin D, losartan, magnesium hydroxide, melatonin, potassium, pravastatin, Zoloft, and Januvia. FAMILY HISTORY: Noncontributory. Her parents in their mid 80s. She states of old age. She could not give me further history. SOCIAL HISTORY: She is a nonsmoker, nondrinker. She is a retired social service director worker. She and lives with her . She has 1 daughter who lives in [facility], is very attentive. REVIEW OF SYSTEMS: All other systems reviewed and turned to be negative. PHYSICAL EXAMINATION: GENERAL: When I saw her, this is a pleasant, frail, elderly female. INITIAL VITAL SIGNS: Showed blood pressure 144/82, pulse is 95 and regular, temperature 99.1 degrees Fahrenheit, oxygen saturation 95% on room air. HEENT: Head is without trauma. Pupils are reactive. Sclerae nonicteric. Oropharynx clear. NECK: Supple, no bruits. LUNGS: Shallow respirations. Minimal rhonchi at bases. CARDIOVASCULAR: Showed distant heart tones. No gallops. ABDOMEN: Soft, scaphoid, nontender, no organomegaly. Bowel sounds were hypoactive. EXTREMITIES: Showed trace edema. NEUROLOGIC: Focally intact. Speech is fluent, but she is nonambulatory. SKIN: Otherwise warm and dry. LABORATORY AND DIAGNOSTIC DATA: CT of the chest as noted diffuse patchy infiltrates consistent with atypical pneumonia. The admission hemoglobin was 13.7 g/dL with a white count of 12,100. Electrolytes within normal range. Creatinine is 1.6 mg/dL, nonfasting blood sugar 172. Liver panel, bilirubin, and transaminases were normal. ASSESSMENT: 1. A 74-year-old female with community-acquired pneumonia, atypical in nature, certainly viral pneumonia cannot be ruled out. 2. Old cerebrovascular accident with residual deficits, making her incontinent and nonambulatory. 3. Labile hypertension. 4. Type 2 diabetes. 5. Degenerative arthritis. PLAN: 1. Admit to the inpatient unit. 2. Intravenous antibiotics as ordered. 3. Empiric Decadron. 4. Anticoagulation. 5. Await swabs including coronavirus and influenza. 6. Diet as tolerated. 7. Continue home meds. IVA HOBSON MD DR: ARNIE/crystal JOB#: [id number] / [id number] Sharonda Cartagena
[2020-07-13] MEDS: LOSARTAN 50 MG TABLET. PO SCH ×2 (17:30→18:10)
[2020-07-13] MEDS: amLODIPine BESYLATE 10 MG TABLET PO SCH ×2 (17:30→18:11)
[2020-07-13] MEDS: SERTRALINE 100 MG TABLET. PO SCH (18:10)
[2020-07-13] MEDS: POTASSIUM CHLORIDE 10 MEQ TABLET.ER. PO SCH (18:10)
[2020-07-13] MEDS: DEXAMETHASONE 4 MG TABLET PO SCH (18:11)
[2020-07-13] MEDS: MELATONIN 3 MG TABLET PO SCH (20:28)
[2020-07-13] MEDS: ENOXAPARIN 30 MG/0.3 ML SYRINGE. SQ SCH (20:29)
[2020-07-13] MEDS: ATORVASTATIN CALCIUM 10 MG TABLET. PO SCH (20:29)
[2020-07-14 06:10] VITALS: BP 164/76
[2020-07-14] MEDS: LINAGLIPTIN 5 MG TABLET PO SCH (08:38)
[2020-07-14] MEDS: LOSARTAN 50 MG TABLET. PO SCH (08:38)
[2020-07-14] MEDS: SERTRALINE 100 MG TABLET. PO SCH (08:38)
[2020-07-14] MEDS: ASPIRIN CHEWABLE 81 MG TABLET. PO SCH (08:38)
[2020-07-14] MEDS: DOCUSATE SODIUM 100 MG CAPSULE PO SCH (08:38)
[2020-07-14] MEDS: LACTOBACILLUS RHAMNOSUS GG 1 CAPSULE. PO SCH ×2 (08:39→20:13)
[2020-07-14] MEDS: DEXAMETHASONE 4 MG TABLET PO SCH (08:39)
[2020-07-14] MEDS: POTASSIUM CHLORIDE 10 MEQ TABLET.ER. PO SCH (08:39)
[2020-07-14] MEDS: amLODIPine BESYLATE 10 MG TABLET PO SCH (09:17)
--- NOTE | 2020-07-14 09:32 | PN ---
DATE: 07/14/2020 ATTENDING PHYSICIAN: Dr. Hobson. SUBJECTIVE: She is more alert today. She is breathing well without any acute respiratory distress. She complains that she is very tired. Affect is very flat. There is a lot of anxiety. OBJECTIVE FINDINGS: VITAL SIGNS: Blood pressure this morning is 164/76. She is afebrile. Pulse is 62 and regular, oxygen saturation 97% on room air. HEENT: Head is without trauma. Pupils are reactive. Sclerae nonicteric. Oropharynx is clear. NECK: Supple. LUNGS: Fairly good breath sounds. I do not appreciate any rhonchi or wheezing. CARDIOVASCULAR: Showed regular heart tones. ABDOMEN: Soft, no guarding. 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 NEUROLOGIC: Mild speech dysarthria. Affect is very flat. SKIN: Warm and dry. ASSESSMENT: 1. A 74-year-old female with community-acquired pneumonia, atypical. Certainly viral pneumonia cannot be ruled out. 2. Old cerebrovascular accident with residual deficits. 3. Labile hypertension. 4. Type 2 diabetes. 5. Degenerative arthritis. PLAN: 1. Await COVID swab. 2. Continue antibiotics as ordered. 3. Physical therapy recommendation. 4. Continue home medications. IVA HOBSON MD DR: ARNIE/crystal JOB#: [id number] / [id number]
[2020-07-14 14:50] VITALS: BP 175/87
[2020-07-14 18:59] VITALS: BP 177/62
[2020-07-14 20:00] VITALS: BP 167/79
[2020-07-14] MEDS: ENOXAPARIN 30 MG/0.3 ML SYRINGE. SQ SCH (20:13)
[2020-07-14] MEDS: ATORVASTATIN CALCIUM 10 MG TABLET. PO SCH (20:14)
[2020-07-14] MEDS: MELATONIN 3 MG TABLET PO SCH (20:14)
[2020-07-14 22:54] VITALS: BP 141/92
--- NOTE | 2020-07-15 05:45 | NUR ---
Pt awake in bed watching TV at change of shift. Pt A&Ox4, pleasant and cooperative with cares and assessments. Pt with hx of CVA with right sided weakness and some expressive aphasia but was able to communicate needs during shift. Pt incont of B&B, Calmoseptine applied after each episode of incontinence, coccyx reddened but blanchable. Pt slept okay during night, did require O2 at 2 L NC when asleep, hx sleep apnea. Pt TQ2 with purple wedge.
[2020-07-15 06:20] VITALS: BP 172/75
--- NOTE | 2020-07-15 08:36 | RAD ---
EXAM: Chest, single view. HISTORY: Pneumonia. COMPARISON: 07/12/2020 FINDINGS: A frontal view of the chest is obtained. There is left lower lobe atelectasis or interstiti al infiltrate. No consolidation, pleural effusion or pneumothorax is seen. There is a stable cardiac silhouette. IMPRESSION: Lower lobe atelectasis or interstitial infiltrate. No consolidated pneumonia is seen. Electronically signed by: Sharonda Farfan MD (07/15/2020 8:34 AM) [id number]
[2020-07-15] MEDS: LINAGLIPTIN 5 MG TABLET PO SCH (09:32)
[2020-07-15] MEDS: amLODIPine BESYLATE 10 MG TABLET PO SCH (09:33)
[2020-07-15] MEDS: ASPIRIN CHEWABLE 81 MG TABLET. PO SCH (09:33)
[2020-07-15] MEDS: LOSARTAN 50 MG TABLET. PO SCH (09:33)
[2020-07-15] MEDS: SERTRALINE 100 MG TABLET. PO SCH (09:33)
[2020-07-15] MEDS: DOCUSATE SODIUM 100 MG CAPSULE PO SCH (09:34)
[2020-07-15] MEDS: LACTOBACILLUS RHAMNOSUS GG 1 CAPSULE. PO SCH ×2 (09:34→20:06)
[2020-07-15] MEDS: POTASSIUM CHLORIDE 10 MEQ TABLET.ER. PO SCH (09:34)
[2020-07-15] MEDS: DEXAMETHASONE 4 MG TABLET PO SCH (09:34)
[2020-07-15 12:00] VITALS: BP 151/72
[2020-07-15 15:38] VITALS: BP 173/58
--- NOTE | 2020-07-15 17:13 | PN ---
DATE: 07/15/2020 ATTENDING PHYSICIAN: Dr. Hobson. SUBJECTIVE: The patient is feeling better. She is alert. She is eating breakfast independently. Once again, she is bedridden and nonambulatory. OBJECTIVE FINDINGS: GENERAL: The patient is afebrile. VITAL SIGNS: Blood pressure today is 170/60, pulse is 66 and regular, oxygen saturation 97% on room air. HEENT: Head is without trauma. Pupils are reactive. Sclerae nonicteric. Oropharynx is clear. NECK: Supple. LUNGS: Clear. CARDIOVASCULAR: Regular heart tones. No gallops. ABDOMEN: Soft. EXTREMITIES: Showed no cyanosis. She is bedridden. SKIN: Warm and dry. Her coronavirus swab was negative and her followup chest x-ray this morning shows clearing of the lung espinosa, normal heart size, no decompensation. ASSESSMENT: 1. A 74-year-old female with community-acquired pneumonia that is resolving. 2. Coronavirus ruled out. She has had her vaccines. 3. Old cerebrovascular accident with residual deficits. 4. Generalized debilitation. PLAN: 1. Continue IV antibiotics another day. 2. I discussed the case with the patient and talked about subacute rehabilitation. She declined. She wants to go home. 3. I will try to contact her , tentative discharge home tomorrow morning with oral antibiotics. IVA HOBSON MD DR: ARNIE/crystal JOB#: [id number] / [id number]
--- NOTE | 2020-07-15 18:12 | NUR ---
Shift Summary Patient had uneventful shift. A&O x4, very pleasant and cooperative. Patient home medications restarted, intravenous antibiotic treatment continues. Patient standby assistance with care, medications taken well, no acute events throughout this shift.
[2020-07-15 19:20] VITALS: BP 158/74
[2020-07-15] MEDS: MELATONIN 3 MG TABLET PO SCH (20:06)
[2020-07-15] MEDS: ATORVASTATIN CALCIUM 10 MG TABLET. PO SCH (20:06)
[2020-07-15] MEDS: ENOXAPARIN 30 MG/0.3 ML SYRINGE. SQ SCH (20:06)
[2020-07-15 23:15] VITALS: BP 161/63
[2020-07-16 06:25] VITALS: BP 136/91
--- NOTE | 2020-07-16 06:30 | NUR ---
Pt up in chair eating dinner and visiting with at change of shift. Pt A&Ox4, can be forgetful but very pleasant and cooperative. Pt took HS medications whole and was assisted back into bed x2 assist. Pt incont of urine about every 2-3 hrs during shift, Calmoseptine applied after each episode of incontinence, coccyx reddened but blanchable nothing open. Pt slept much better tonight then previous night, did require O2 at 2 L NC when asleep to keep sats above 92%, hx sleep apnea. Pt TQ2 with purple wedge. Pt hopeful for DC home today.
[2020-07-16 08:03] VITALS: BP 177/83
[2020-07-16] MEDS: DOCUSATE SODIUM 100 MG CAPSULE PO SCH (08:04)
[2020-07-16] MEDS: POTASSIUM CHLORIDE 10 MEQ TABLET.ER. PO SCH (08:04)
[2020-07-16] MEDS: LINAGLIPTIN 5 MG TABLET PO SCH (08:04)
[2020-07-16] MEDS: ASPIRIN CHEWABLE 81 MG TABLET. PO SCH (08:04)
[2020-07-16] MEDS: LACTOBACILLUS RHAMNOSUS GG 1 CAPSULE. PO SCH (08:05)
[2020-07-16] MEDS: amLODIPine BESYLATE 10 MG TABLET PO SCH (08:05)
[2020-07-16] MEDS: SERTRALINE 100 MG TABLET. PO SCH (08:05)
[2020-07-16] MEDS: LOSARTAN 50 MG TABLET. PO SCH (08:05)
[2020-07-16] MEDS: DEXAMETHASONE 4 MG TABLET PO SCH (08:06)
--- NOTE | 2020-07-16 10:16 | DS ---
DATE OF DISCHARGE: 07/16/2020 ADDENDUM ATTENDING PHYSICIAN: Dr. Hobson. The patient was ready for discharge. I had already written prescriptions for her. I called Mr. Thibodeaux, the primary arcade attendant. He has now changed his mind saying that he is unable to care for her and requested the patient be sent for subacute rehabilitation. They have selected [facility]. The discharge medications remain unchanged. She has a recent negative coronavirus swab and hopefully we can get her there later today. ___ will be discharged to [facility] subacute rehabilitation with the same diagnosis and discharge planning. IVA HOBSON MD DR: ARNIE/crystal JOB#: [id number] / [id number] HAO Castillo MD
[2020-07-16 10:53] VITALS: BP 143/81
--- NOTE | 2020-07-16 13:22 | DS ---
DATE OF DISCHARGE: 07/16/2020 ATTENDING PHYSICIAN: Dr. Hobson. FINAL DISCHARGE DIAGNOSES: 1. Community-acquired pneumonia, improved. 2. COVID-19 coronavirus ruled out. 3. Old cerebrovascular accident with significant neurologic deficit. 4. Labile hypertension. 5. Type 2 diabetes mellitus. 6. Degenerative arthritis. 7. Debilitation from stroke and nonambulatory. HISTORY AND PHYSICAL: The patient is a 74-year-old female with multiple medical issues. She has had a recent coronavirus vaccine. She has had a debilitating stroke with residual deficits, cared for by her elderly for the last several years. She presented with weakness, shortness of breath and hypoxemia. Chest x-ray evidence showed atypical bilateral infiltrates. PHYSICAL EXAMINATION: Please see my dictated note. PERTINENT LABORATORY AND X-RAY STUDIES: Admission chest x-ray and CT of the chest showed diffuse patchy infiltrates in the bases. Pulmonary embolus was ruled out. There were no signs of congestive heart failure. PERTINENT LABORATORY STUDIES: Her admission hemoglobin was 13.7 g/dL with a white count of 12,100. Electrolytes showed a sodium 145, potassium 3.5 mEq, creatinine was 1.6 mg percent, and BUN 24. This will be followed as outpatient. Cardiac enzymes negative for coronary ischemia. Liver panel and calcium were all normal. COURSE IN THE HOSPITAL: The patient was admitted with atypical pneumonia. She had a repeat coronavirus swab, and had been a person under investigation. After 2 days, the swab came back negative. She was taken out of the isolation precaution. Diet was advanced. Sugars were monitored and they were quite adequate. In addition, she had 4 full days of intravenous antibiotics along with empiric Decadron and anticoagulation with empiric Lovenox prophylactically. When the swab was negative, we stopped her Decadron and Lovenox. On the fifth hospital day, she was doing better. Followup chest x-ray showed clearing of her infiltrates and clinically she was doing better. On the fifth hospital day, her blood pressure was 136/91 mmHg. She was afebrile and oxygen saturation was at 98% on room air. Therefore, she is discharged home with 5 more days of cephalexin 500 mg p.o. t.i.d. and continuation of her home medicine including the following. She should continue her amlodipine 10 mg daily, aspirin 81 mg daily, calcium carbonate daily, docusate, vitamin D2, losartan 50 mg daily, magnesium oxide, melatonin, potassium supplementation in the form of Klor-Con 10 mEq daily, pravastatin 40 mg daily, Zoloft 100 mg daily and Januvia 100 mg daily. I suggested she follow up with Dr. Dwyer at scheduled time. I offered subacute rehab for the patient; she declined. Her and the daughter had been notified and they are in agreement that he will continue to care for at home as long as he can. They had thought about a higher level of care and they will decide this sometime at a later date. At this time, the patient was discharged home in stable condition with explicit instructions and followup care, 5 more days of cephalexin. Follow up with Dr. Dwyer. Total discharge time spent 39 minutes. IVA HOBSON MD DR: ARNIE/crystal JOB#: [id number] / [id number] HAO Castillo MD
--- NOTE | 2020-07-16 14:56 | NUR ---
pt discharged from unit at 1450 via wheel chair accompanied by family member. written and verbal instructions given to pt with verbal statement of understanding
== END 2020-07-16 14:50 | DRG 177 ==
LOC: ER 17:41 → ICU 20:53
PROVIDERS: ADMIT Hospitalist; ATTEND Hospitalist
DX: J15.6 Pneumonia due to other Gram-negative bacteria (principal); R53.2 Functional quadriplegia; J12.9 Viral pneumonia, unspecified; I10 Essential (primary) hypertension; E11.9 Type 2 diabetes mellitus without complications; J15.9 Unspecified bacterial pneumonia; M19.90 Unspecified osteoarthritis, unspecified site; R29.818 Other symptoms and signs involving the nervous system; F41.9 Anxiety disorder, unspecified; R53.81 Other malaise; R09.02 Hypoxemia; Z20.822 Contact with and (suspected) exposure to COVID-19; I69.30 Unspecified sequelae of cerebral infarction; Z74.01 Bed confinement status; Z79.82 Long term (current) use of aspirin; Z79.84 Long term (current) use of oral hypoglycemic drugs; Z79.899 Other long term (current) drug therapy; Z90.49 Acquired absence of other specified parts of digestive tract; Z90.710 Acquired absence of both cervix and uterus; Z88.8 Allergy status to other drugs, medicaments and biological substances; Z88.0 Allergy status to penicillin
CPT/HCPCS: 36415; 71045; 71275; 80053; 81001; 83605; 84484; 85025; 85379; 93005; 96361; 96365; 96372; 96375; J0696; J1650; J1956; J2405; J8540; Q9967; U0003; U0005; 97530; 99285-25; J7030